=== PATIENT | male | born 1965 | race American Indian/Alaskan Native ===

== ENCOUNTER 2021-12-24 12:26 | Emergency (ER) | payer OTHER ==
[2021-12-24] MEDS ORDERED: NITROGLYCERIN 0.4 MG TAB SUBL SL PRN (13:04)
[2021-12-24] MEDS ORDERED: METOCLOPRAMIDE 10 MG/2 ML INJ IV ONE ×2 (13:04→21:06)
[2021-12-24] MEDS ORDERED: MECLIZINE 25 MG TAB PO ONE (13:05)
--- NOTE | 2021-12-24 13:09 | Emergency Department Report ---
ED General Adult HPI - General Chief complaint: Dizziness Stated complaint: HOT FLASH/DIZZY/SHAKY PUI?: No Source: patient, RN notes reviewed Mode of arrival: Wheelchair Limitations: Physical Limitation - History of Present Illness Initial comments: This patient is a 56-year-old gentleman. He has a history of tobacco abuse, and hypertension, and noncompliance with medications. Patient presents to the ER today with complaint of weakness, dizziness, feeling unsteady on his feet, left- sided chest pressure, with nausea/vomiting. He believes his last known well time is 10:00 AM. Denies trauma, surgery, immobilization, DVT/PE risk factors, hematemesis and bright red blood per rectum. He otherwise denies physical pain. He is found to be ataxic in the emergency room, with an appropriate Accu-Chek. A code stroke is activated overhead. -: Sudden, hour(s) Location: chest Consistency: constant Improves with: rest Worsens with: movement - Related Data Allergies Allergy/AdvReac Type Severity Reaction Status Date / Time No Known Allergies Allergy Verified 12/24/21 12:50 ED Review of Systems ROS: Stated complaint: HOT FLASH/DIZZY/SHAKY Other details as noted in HPI Constitutional: denies: fever ENT: denies: epistaxis Respiratory: denies: cough Cardiovascular: chest pain Gastrointestinal: denies: abdominal pain, hematemesis, melena, hematochezia Neurological: abnormal gait Hematological/Lymphatic: denies: easy bleeding ED Physical Exam - General Limitations: Physical Limitation General appearance: alert, anxious - Head Head exam: Present: atraumatic, normocephalic - Eye Eye exam: Present: normal appearance, EOMI, nystagmus (Bilateral nonfatigable horizontal nystagmus is noted.) - ENT ENT exam: Present: normal exam, normal orophraynx, mucous membranes moist, normal external ear exam - Neck Neck exam: Present: normal inspection, full ROM. Absent: tenderness, meningismus - Respiratory Respiratory exam: Present: normal lung sounds bilaterally. Absent: respiratory distress, wheezes, rales, rhonchi, stridor - Cardiovascular Cardiovascular Exam: Present: regular rate, normal rhythm. Absent: systolic murmur, diastolic murmur, rubs, gallop - GI/Abdominal GI/Abdominal exam: Present: soft. Absent: distended, tenderness, guarding, rebound, rigid, pulsatile mass - Rectal Rectal exam: Present: deferred - Extremities Exam Extremities exam: Present: normal inspection, full ROM, other (2+ pulses noted in the bilateral upper and lower extremities. There is no palpable cord. negative Homans sign. Muscular compartments are soft. The pelvis is stable.). Absent: pedal edema, calf tenderness - Back Exam Back exam: Present: normal inspection. Absent: tenderness, CVA tenderness (L), paraspinal tenderness, vertebral tenderness - Neurological Exam Neurological exam: Present: alert (There is no past-pointing. There is normal [id number].), oriented X3, abnormal gait (Patient walks with a broad-based unsteady gait), other (No facial droop. Tongue midline. Extraocular movements intact bilaterally. Facial sensation intact to light touch in V1, V2, V3 distribution bilaterally. 5 and a 5 strength in 4 extremities. Sensation intact to light touch in 4 extremities.). Absent: motor sensory deficit - Psychiatric Psychiatric exam: Present: anxious - Skin Skin exam: Present: warm, dry, intact, normal color. Absent: rash ED Course Vital Signs 12/24/21 12/24/21 12/24/21 12:50 13:43 13:52 Temperature 97.4 F L Pulse Rate 76 82 80 Respiratory 16 18 Rate Blood Pressure 236/125 Blood Pressure 232/132 [Left] Blood Pressure 236/135 [Right] O2 Sat by Pulse 95 95 Oximetry 12/24/21 12/24/21 12/24/21 13:57 14:00 14:02 Temperature Pulse Rate 78 81 79 Respiratory 23 24 22 Rate Blood Pressure Blood Pressure [Left] Blood Pressure 218/131 236/125 230/128 [Right] O2 Sat by Pulse 96 98 97 Oximetry 12/24/21 12/24/21 12/24/21 14:06 14:08 14:10 Temperature Pulse Rate 76 76 75 Respiratory 17 17 15 Rate Blood Pressure Blood Pressure [Left] Blood Pressure 230/129 225/123 221/119 [Right] O2 Sat by Pulse 95 96 96 Oximetry 12/24/21 12/24/21 12/24/21 14:13 14:18 14:22 Temperature Pulse Rate 80 82 83 Respiratory 17 16 16 Rate Blood Pressure Blood Pressure [Left] Blood Pressure 203/123 174/109 169/106 [Right] O2 Sat by Pulse 96 95 98 Oximetry 12/24/21 12/24/21 12/24/21 14:29 14:45 15:00 Temperature Pulse Rate 80 81 79 Respiratory 17 19 Rate Blood Pressure 168/103 Blood Pressure [Left] Blood Pressure 156/97 154/98 [Right] O2 Sat by Pulse 97 94 Oximetry 12/24/21 12/24/21 12/24/21 15:30 16:00 17:00 Temperature Pulse Rate 75 74 84 Respiratory 18 14 17 Rate Blood Pressure Blood Pressure [Left] Blood Pressure 149/93 151/91 146/82 [Right] O2 Sat by Pulse 98 98 94 Oximetry 12/24/21 12/24/21 12/24/21 17:35 17:45 18:00 Temperature Pulse Rate 74 83 Respiratory 20 22 Rate Blood Pressure 174/112 Blood Pressure [Left] Blood Pressure [Right] O2 Sat by Pulse 98 94 92 Oximetry 12/24/21 12/24/21 18:16 18:30 Temperature Pulse Rate 86 81 Respiratory 21 16 Rate Blood Pressure 172/106 147/84 Blood Pressure [Left] Blood Pressure [Right] O2 Sat by Pulse 93 93 Oximetry - Reevaluation(s) Reevaluation #1: 12/24/21 14:45 Differential diagnosis, including but not limited to: Acute coronary syndrome, acute ischemic stroke, central vertigo, peripheral vertigo, hypertensive emergency, PRESS syndrome Assessment and plan: 56-year-old gentleman, presenting today with a complaint of nausea, vomiting, unsteady gaits, subjective ataxia, found to be markedly ataxic on his examination, which symptoms concerning for acute ischemic stroke. The patient endorses no contraindications to TPA. Patient presented markedly hypertensive, and required multiple doses of labetalol, 10 mg x 2, administered by myself, and subsequent initiation of a Cardene drip. The risks, benefits, and alternatives of TPA were discussed with the patient, including the risk of potential fatal bleed, or hemorrhagic conversion. Patient has provided verbal informed consent for TPA administration. Ultimately, blood pressure is improved to 169/106 mmHg, and patient is seen in consultation with stroke neurology, Dr. Santoyo; we both agree that this patient is a TPA candidate, and TPA is recommended. The patient is agreeable to TPA. Multiple communicative attempts were relayed to interpreting radiology, reque sting expedited interpretation of CT scan of the brain. Received verbal report from radiologist, Dr. Chelsi Jerome that noncontrast CT scan of the brain is negative for acute findings, specifically hemorrhage. TPA bolus is administered with me at the bedside. Received subsequent phone call from radiologist, Dr. Mena, with the following interpretation:IMPRESSION: 1. No acute intracranial hemorrhage. 2. 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 No definite acute territorial infarct. 3. Probable left retinal detachment with subacute to acute hematoma. The patient's TPA drip is canceled. Have rediscussed this with Dr. Santoyo; aminocaproic acid, TXA not recommended. She also recommends repeat noncontrast CT scan of the brain, 60 minutes, which has currently been ordered. Have then reached out to [facility] transfer [place] and discussed the case with Dr Vergara, neurology critical care, who advises that it would be acceptable to accept this patient as a transfer, but they do not have any beds supportive care is recommended, continued cardene drip, no reveral agents at this time they will keep the patient on their list should a bed open up called up [facility] transfer center, and discussed the history physical and clinical impression with their neuro critical care physician Dr Lg Conley. [facility] advises that they dont have available critical care beds [facility] up [facility] to discuss and I discussed the patient's history, physical, imaging studies and clinical impression with neurology critical care, Dr. Vasquez He has accepted the patient as a transfer to their critical care unit. Went back and had extensive discussion with the patient's son, and the patient, with patient's permission to discuss his medical information. Specifically described rationale for transfer, and current impression of current events. T michael have provided consent for transfer. Repeat noncontrast CT scan of the brain pending. [place] [facility] transfer center to be updated. 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 Patient is awake, alert, protecting airway, moving 4 extremities, and in no acute distress, and suitable for transfer at this point in time 12/24/21 18:55 Patient is reassessed multiple times. He is moving 4 extremities moving spontaneously. Blood pressure is acceptable at this time. Repeat noncontrast CT scan of the brain negative for acute different findings. Transportation to arrive at 8:00 PM. Patient and family members updated. ED Medical Decision Making - Lab Data Result diagrams: 12/24/21 13:56 12/24/21 13:56 Vital Signs 12/24/21 12/24/21 12:50 13:52 Temperature 97.4 F L Pulse Rate 76 80 Respiratory 16 Rate Blood Pressure 236/125 Blood Pressure 232/132 [Left] O2 Sat by Pulse 95 Oximetry Lab Results 12/24/21 12/24/21 12/24/21 Range/Units 13:56 13:56 13:56 WBC 12.4 H (4.5-11.0) K/mm3 RBC 4.94 (3.65-5.03) M/mm3 Hgb 14.1 (11.8-15.2) gm/dl Hct 44.1 (35.5-45.6) % MCV 89 (84-94) fl MCH 29 (28-32) pg MCHC 32 (32-34) % RDW 15.0 (13.2-15.2) % Plt Count 194 (140-440) K/mm3 Seg Neutrophils % Crepe S[employer]ourer PT 13.8 (12.2-14.9) Sec. INR 0.96 (0.87-1.13) APTT 26.7 (24.2-36.6) Sec. Thrombin Time 16.7 (15.1-19.6) Sec. Sodium 138 (137-145) mmol/L Potassium 4.3 (3.6-5.0) mmol/L Chloride 102.2 (98-107) mmol/L Carbon Dioxide 25 (22-30) mmol/L Anion Gap 15 mmol/L BUN 27 H (9-20) mg/dL Creatinine 1.7 H (0.8-1.3) mg/dL Estimated GFR 42 ml/min BUN/Creatinine Ratio 16 % Glucose 148 H (75-100) mg/dL Calcium 10.2 (8.4-10.2) mg/dL Total Bilirubin 0.50 (0.1-1.2) mg/dL AST 16 (5-40) units/L ALT 8 (7-56) units/L Alkaline Phosphatase 64 (35-129) units/L Total Creatine Kinase 172 H (55-170) units/L CK-MB (CK-2) 5.2 H (0.0-4.0) ng/mL CK-MB (CK-2) Rel Index 3.0 (0-4) Troponin T < 0.010 (0.00-0.029) ng/mL Total Protein 7.6 (6.3-8.2) g/dL Albumin 4.5 (3.9-5) g/dL Albumin/Globulin Ratio 1.5 % - EKG Data -: EKG Interpreted by Or EKG shows normal: sinus rhythm Rate: normal - EKG Data When compared to previous EKG there are: previous EKG unavailable 12/24/21 14:38 The EKG is interpreted at 12: 56 Sinus rhythm, rate 75 bpm. Left axis deviation. Left anterior fascicular block. Left ventricular hypertrophy. Nonspecific ST abnormality. No reciprocal changes are noted. The EKG is not a STEMI. EKG also transmitted to our pizza maker, Dr Gruber, who agrees and advises that this EKG does not meet criteria for STEMI - Radiology Data Radiology results: pending, report reviewed, image reviewed CT HEAD WITHOUT CONTRAST INDICATION / CLINICAL INFORMATION: Stroke symptoms. Posterior symptoms. TECHNIQUE: All CT scans at this location are performed using CT dose reduction for ALARA by means of automated exposure control. COMPARISON: None available. FINDINGS: HEMORRHAGE: None. EXTRA-AXIAL SPACES: Normal in size and morphology for the patient's age. VENTRICULAR SYSTEM: Normal in size and morphology for the patient's age. 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 No acute territorial infarct. MIDLINE SHIFT / HERNIATION: None. CEREBELLUM / BRAINSTEM: No significant abnormality. ORBITS: Probable left retinal detachment with subacute to acute hematoma measuring 2.5 x 1.0 cm as seen on axial series 2 image 22. SOFT TISSUES: No significant abnormality. SKULL: No significant abnormality. PARANASAL SINUSES / MASTOID AIR CELLS: Normal as visualized. ADDITIONAL FINDINGS: None. IMPRESSION: 1. No acute intracranial hemorrhage. 2. 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 No definite acute territorial infarct. 3. Probable left retinal detachment with subacute to acute hematoma. CODE STROKE Time of Communication (COMPONENT LAB TECH/CDT): 1:25 PM Licensed Practitioner Receiving Report: Dr. Peralta in the ED Signer Name: Chacha Mena MD Signed: 12/24/2021 1:29 PM Workstation Name: [id number] CTA NECK WITH CONTRAST 12/24/2021 INDICATION / CLINICAL INFORMATION: stroke sx. COMPARISON: None. TECHNIQUE: Routine CTA of the neck is performed. 3-D/MIP reformats were postprocessed. Percentage stenosis is determined by direct quantitative measurements of diseased internal carotid artery diameter compared with normal distal internal carotid artery reference segments or by criteria similar to NASCET where applicable. All CT scans at this location are performed using CT dose reduction for ALARA by means of automated exposure control. CONTRAST: 100 ml of Omnipaque 350 FINDINGS: Carotid bifurcations: There is no evidence of carotid bifurcation stenosis. Carotid arteries: No significant abnormality. Cervical vertebral arteries: No significant abnormality. Aortic arch: No significant abnormality. None. IMPRESSION: No significant abnormality. Signer Name: Nelson Pimentel MD Signed: 12/24/2021 1:35 PM Workstation Name: [id number] CTA HEAD WITH CONTRAST 12/24/2021 HISTORY: stroke sx. COMPARISON: None. TECHNIQUE: All CT scans at this location are performed using CT dose reduction for ALARA by means of automated exposure control.. 3-D/MIP reformats po stprocessed. Percentage stenosis is determined by direct quantitative measurements of diseased internal carotid artery diameter compared with normal distal internal carotid artery reference segments or by criteria similar to NASCET where applicable. CONTRAST: 100 ml of Omnipaque 350 FINDINGS: CTA HEAD: Intracranial vertebral arteries: No significant abnormality. Basilar artery: No significant abnormality. Posterior cerebral arteries: No significant abnormality. Intracranial internal carotid arteries: No significant abnormality. Anterior cerebral arteries: No significant abnormality. Middle cerebral arteries: No significant abnormality. Dural venous sinuses:Not optimally opacified. No significant abnormality. Additional findings: None. IMPRESSION: 1. No significant abnormality. Signer Name: Nelson Pimentel MD Signed: 12/24/2021 1:39 PM Workstation Name: [id number] CT BRAIN: 12/25/2023 1618 hours INDICATION / CLINICAL INFORMATION: s/p tpa bolus, left retinal detachment bleed. COMPARISON: CT brain 12/24/2021 1319 hours FINDINGS: BRAIN/INTRACRANIAL STRUCTURES: Unenhanced CT images of the brain were obtained and compared to previous exam from several hours earlier. There is been no change. Again seen is diffuse cerebral atrophy with chronic right frontal subcortical hyp oattenuation. There is no evidence of superimposed ischemic injury, hemorrhage, or mass. There are no abnormal extra-axial fluid collections. Again seen is evidence of probable left retinal detachment, unchanged in appearance and configuration when compared to the prior exam. EXTRACRANIAL STRUCTURES: Unremarkable. IMPRESSION: No evidence of acute superimposed abnormality when compared to the previous exam. Stable appearance of left globe. All CT scans at this location are performed using dose reduction to ALARA by means of automated exposure control. Signer Name: Nelson Pimentel MD Signed: 12/24/2021 3:40 PM Workstation Name: [id number] Critical Care Time: Yes Critical care time in (mins) excluding proc time.: 180 Critical care attestation.: If time is entered above; I have spent that time in minutes in the direct care of this critically ill patient, excluding procedure time. ED Disposition Clinical Impression: Hypertensive emergency, Unsteady gait, Abnormal CT scan of head, Retinal detachment Disposition: 02 SHORT TERM [facility]OSPITAL Is pt being admited?: No Does the pt Need Aspirin: No Condition: Critical Instructions: Hypertension (ED) Referrals: ROMA MARTINI MD [Primary Care Provider] - 3-5 Days - Assessment Assessment Interval: Baseline - Level of Consciousness 1a. Level of Consciousness: alert/keenly responsive - LOC Questions 1b. LOC Questions: answers both correctly - LOC Command 1c. LOC Commands: performs tasks correctly - Best Gaze 2. Best Gaze: normal - Visual 3. Visual: no visual loss - Facial Palsy 4. Facial Palsy: normal symmetrical movement - Motor Arm 5a. Motor Arm Left: no drift 5b. Motor Arm Right: no drift - Motor Leg 6a. Motor Leg Left: no drift 6b. Motor Leg Right: no drift - Limb Ataxia 7. Limb Ataxia: absent - Sensory 8. Sensory: normal - Best Language 9. Best Language: no aphasia - Dysarthria 10. Dysarthria: normal - Extinction and Inattention 11. Extinction/Inattention: no abnormality - Scoring Total Score: 0 Stroke Severity: No Stroke Symptoms
[2021-12-24] MEDS ORDERED: ALTEPLASE 100 MG INJ KIT IV ONE ×2 (13:40)
[2021-12-24] MEDS ORDERED: SODIUM CHLORIDE 0.9% 50 ML IVPB IV ONE (13:40)
[2021-12-24] MEDS ORDERED: niCARdipine DRIP 40 MG/200 ML BAG ONE (13:54)
[2021-12-24] MEDS ORDERED: niCARdipine 50 MG in SODIUM CHLORIDE 0.9% 250ML 230 ML IV SCH (14:00)
[2021-12-24 14:04] LABS: Hematocrit 44.1 % (35.5-45.6); Hemoglobin 14.1 gm/dl (11.8-15.2); Mean Corpuscular HGB Conc 32 % (32-34); Mean Corpuscular Volume 89 fl (84-94); Platelet Count 194 K/mm3 (140-440); Red Blood Count 4.94 M/mm3 (3.65-5.03)
[2021-12-24 14:21] LABS: INR 0.96 (0.87-1.13)
[2021-12-24 14:22] LABS: Partial Thromboplastin Time 26.7 Sec. (24.2-36.6); Thrombin Time 16.7 Sec. (15.1-19.6)
[2021-12-24 14:32] LABS: Alanine Aminotransferase 8 units/L (7-56); Albumin 4.5 g/dL (3.9-5); BUN/Creatinine Ratio 16; Blood Urea Nitrogen 27 mg/dL (9-20); Calcium 10.2 mg/dL (8.4-10.2); Hemolysis Index 5
[2021-12-24 14:33] LABS: Creatine Kinase MB 5.2 ng/mL (0.0-4.0)
--- NOTE | 2021-12-24 14:34 | Cat Scan Report ---
CT HEAD WITHOUT CONTRAST INDICATION / CLINICAL INFORMATION: Stroke symptoms. Posterior symptoms. TECHNIQUE: All CT scans at this location are performed using CT dose reduction for ALARA by means of automated exposure control. COMPARISON: None available. FINDINGS: HEMORRHAGE: None. EXTRA-AXIAL SPACES: Normal in size and morphology for the patient's age. VENTRICULAR SYSTEM: Normal in size and morphology for the patient's age. 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 No acute territorial infarct. MIDLINE SHIFT / HERNIATION: None. CEREBELLUM / BRAINSTEM: No significant abnormality. ORBITS: Probable left retinal detachment with subacute to acute hematoma measuring 2.5 x 1.0 cm as se en on axial series 2 image 22. SOFT TISSUES: No significant abnormality. SKULL: No significant abnormality. PARANASAL SINUSES / MASTOID AIR CELLS: Normal as visualized. ADDITIONAL FINDINGS: None. IMPRESSION: 1. No acute intracranial hemorrhage. 2. 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 No definite acute territorial infarct. 3. Probable left retinal detachment with subacute to acute hematoma. CODE STROKE Time of Communication (BRIDGE TENDER/CDT): 1:25 PM Licensed Practitioner Receiving Report: Dr. Peralta in the ED Signer Name: Chacha Mena MD Signed: 12/24/2021 2:29 PM Workstation Name: [id number]
--- NOTE | 2021-12-24 14:40 | Cat Scan Report ---
CTA NECK WITH CONTRAST 12/24/2021 INDICATION / CLINICAL INFORMATION: stroke sx. COMPARISON: None. TECHNIQUE: Routine CTA of the neck is performed. 3-D/MIP reformats were postprocessed. Percentage st enosis is determined by direct quantitative measurements of diseased internal carotid artery diameter compared with normal distal internal carotid artery reference segments or by criteria similar to ALFIE CET where applicable. All CT scans at this location are performed using CT dose reduction for ALARA b y means of automated exposure control. CONTRAST: 100 ml of Omnipaque 350 FINDINGS: Carotid bifurcations: There is no evidence of carotid bifurcation stenosis. Carotid arteries: No significant abnormality. Cervical vertebral arteries: No significant abnormality. Aortic arch: No significant abnormality. None. IMPRESSION: No significant abnormality. Signer Name: Nelson Pimentel MD Signed: 12/24/2021 2:35 PM Workstation Name: [id number]
--- NOTE | 2021-12-24 14:43 | Cat Scan Report ---
CTA HEAD WITH CONTRAST 12/24/2021 HISTORY: stroke sx. COMPARISON: None. TECHNIQUE: All CT scans at this location are performed using CT dose reduction for ALARA by means of automated exposure control.. 3-D/MIP reformats postprocessed. Percentage stenosis is determined by d irect quantitative measurements of diseased internal carotid artery diameter compared with normal dis eliseo internal carotid artery reference segments or by criteria similar to NASCET where applicable. CONTRAST: 100 ml of Omnipaque 350 FINDINGS: CTA HEAD: Intracranial vertebral arteries: No significant abnormality. Basilar artery: No significant abnormality. Posterior cerebral arteries: No significant abnormality. Intracranial internal carotid arteries: No significant abnormality. Anterior cerebral arteries: No significant abnormality. Middle cerebral arteries: No significant abnormality. Dural venous sinuses:Not optimally opacified. No significant abnormality. Additional findings: None. IMPRESSION: 1. No significant abnormality. Signer Name: Nelson Pimentel MD Signed: 12/24/2021 2:39 PM Workstation Name: [id number]
[2021-12-24 15:20] LABS: Basophils % (Manual) 0 % (0.0-1.8); Eosinophils % (Manual) 0 % (0.0-4.3); Total Cells Counted 100
[2021-12-24 15:21] LABS: Platelet Estimate Consistent w Auto; RBC Morphology Normal
--- NOTE | 2021-12-24 15:27 | XRay Report ---
CHEST 1 VIEW 12/24/2021 3:03 PM INDICATION / CLINICAL INFORMATION: chest pain. COMPARISON: None available. FINDINGS: SUPPORT DEVICES: None. HEART / MEDIASTINUM: Heart is upper normal size for AP portable technique. LUNGS / PLEURA: No significant pulmonary or pleural abnormality. No pneumothorax. ADDITIONAL FINDINGS: No significant additional findings. IMPRESSION: 1. No acute findings. Signer Name: Chacha Mena MD Signed: 12/24/2021 3:22 PM Workstation Name: [id number]
--- NOTE | 2021-12-24 16:45 | Cat Scan Report ---
CT BRAIN: 12/25/2023 1618 hours INDICATION / CLINICAL INFORMATION: s/p tpa bolus, left retinal detachment bleed. COMPARISON: CT brain 12/24/2021 1319 hours FINDINGS: BRAIN/INTRACRANIAL STRUCTURES: Unenhanced CT images of the brain were obtained and compared to previo us exam from several hours earlier. There is been no change. Again seen is diffuse cerebral atrophy with chronic right frontal subcortical hypoattenuation. There is no evidence of superimposed ischemic injury, hemorrhage, or mass. There are no abnormal extr a-axial fluid collections. Again seen is evidence of probable left retinal detachment, unchanged in appearance and configuration when compared to the prior exam. EXTRACRANIAL STRUCTURES: Unremarkable. IMPRESSION: No evidence of acute superimposed abnormality when compared to the previous exam. Stable appearance of left globe. All CT scans at this location are performed using dose reduction to ALARA by means of automated expos ure control. Signer Name: Nelson Pimentel MD Signed: 12/24/2021 4:40 PM Workstation Name: [id number]
[2021-12-24 21:23] VITALS: BP 163/100
--- NOTE | 2021-12-25 00:06 | Emergency Department Report ---
Blank Doc - Documentation Documentation: [facility] Consult Note # Demographics Consult Type: Acute Stroke Level 1 (0-4.5 hrs) Patient Location: Emergency Room First Name: Nina Last Name: Carroll Date of : 1965 Age: 56 Gender: Male Facility: [facility] Time of Initial Page ( Time): 12/24/2021, 13:05 Time of Return Call ( Time): 12/24/2021, 13:05 # HPI History: 56 year old male with hx of HTN, noncompliant with meds, presents to ED with acute onset of dizziness and ataxia. Patient states he was working on something in the house when he suddenly felt sick, he came out started to feel nausea, dizzy and difficulty in walking. # Scores Time of exam and NIHSS (): 12/24/2021, 12:37 Level of Consciousness 1a: [0] = Alert; keenly responsive LOC Questions 1b: [0] = Answers both questions correctly LOC Commands 1c: [0] = Performs both tasks correctly Best Gaze 2: [0] = Normal Visual 3: [0] = No visual loss Facial Palsy 4: [0] = Normal symmetrical movements Motor Arm Left 5a: [1] = Drift Motor Arm Right 5b: [0] = No drift Motor Leg Left 6a: [2] = Some effort against gravity Motor Leg Right 6b: [0] = No drift Limb Ataxia 7: [1] = Present in one limb Sensory 8: [0] = Normal Best Language 9: [0] = No aphasia Dysarthria 10: [0] = Normal Extinction and Inattention 11: [0] = No abnormality NIHSS Total: 4 # Exam Additional Neurologic Exam: severe ataxic and unsteady gait leaning to the let on walking # Data Head CT: hemorrhage left eye hematoma thats acute-subacute CTA Head: no large vessel occlusion per radiologist read CTA Neck: patent vessels per radiologist read # Assessment Impression: 56 year old male with hx of htn, non-compliant on meds presents with symptoms of posterior circulation with noted dizziness ?, nausea, ataxia. Patient also complaining of chest pain. Patient met tpa criteria. I personally was unable to read CTH as it read "no studies available". Initial CTH read as negative to Dr. Peralta over the phone by radiologist. Patient given tpa bolus after which Dr. Alexander reported acute to subacute hematoma in left eye with retinal detachment on CTH. tpa infusion was had not been started. Patient with elevated BP >220 and very resilient to treatment. Dr. Peralta and I discussed these findings. We will no continue with tpa at this time. Will repeat CTH in 1 hour to confirm no further change in hematoma of the left eye. Patient confirms this may be chronic however findings on CTH were noted to be acute. CTA with no LVO. Recommend further stroke work up. Optho consult for left eye findings. Etiology stroke vs. hypertensive emergency (PRES) # Plan Thrombolytic/Intervention: IV Thrombolysis Thrombolytic Dosing: IV alteplase 0.9 mg/kg, max dose 90 mg; 10% of dose given over 1 minute IVP, remaining 90% given as infusion over 1 hour Intraarterial Exclusion: no large vessel occlusion (LVO) Target Blood Pressure: SBP < 180 DBP < 105 Labs: CBC comprehensive metabolic panel hemoglobin A1c liver function tests lipid panel troponin TSH ua Imaging: (urgency: STAT): CT Angiogram Head and CT Angiogram Neck Imaging: (urgency: routine): MRI Brain without contrast Diagnostic Test: echo with bubble study Therapy/Evaluation: NPO until swallow evaluation PT/OT evaluation speech/swallow consultation Thrombolytic Administration Recommendations: I reviewed the risks/benefits/alternatives of IV thrombolytic therapy with the patient. They understand there is potential of life threatening hemorrhage from IV thrombolysis. I stated that I believe benefits outweighs risk. They wish to proceed with IV thrombolytic therapy. I have collected independent history specific to time last normal or last known well. We have collaborated with the ED provider and at this time, we have the most current timeline with the information that is available. BP goal< 180/105 for 24hrs post Thrombolytic administration Use Labetolol 10-20mg IV prn or Nicardipine gtt to maintain BP parameters No antiplatelets or anticoagulants for next 24 hrs unless indicated for emergent IA procedure or other life threatening situation ICU admission Call back if there is any decline in neurological condition symptoms deemed to be disabling, despite low NIHSS Other: consult on-site neurology service for full work-up and evaluation recommendations If patient has any neurological deterioration please call me back immediately telemetry monitoring I have discussed my recommendations with the referring provider Disposition: transfer
--- NOTE | 2021-12-25 14:18 | Electrocardiograph Report ---
[facility] Test Date: 2021-12-24 Test Time: 12:56:23 Pat Name: CYRUS ANDERSON Department: Room: Gender: M Embedded Systems Engineer: CHELY : 1965 Requested By: SHANA FERRER Order Number: [id number] Reading MD: Vick [facility] Measurements Intervals [place] Rate: 75 P: 38 MS: 162 QRS: -11 QRSD: 104 T: 55 QT: 414 QTc: 464 Interpretive Statements Sinus rhythm Left atrial enlargement Left ventricular hypertrophy No previous ECG available for comparison Electronically Signed On 12-25-2021 14:18:15 EDT by Vick Heart
--- NOTE | 2021-12-25 14:20 | Electrocardiograph Report ---
[facility] Test Date: 2021-12-24 Test Time: 17:45:02 Pat Name: CYRUS ANDERSON Department: Room: Gender: M Weaving Loom Operator: STAN : 1965 Requested By: SHANA FERRER Order Number: [id number] Reading MD: Vick [facility] Measurements Intervals [place] Rate: 74 P: 42 [place]: 150 QRS: -19 QRSD: 104 T: 68 QT: 401 QTc: 445 Interpretive Statements Sinus rhythm Probable left atrial enlargement Left ventricular hypertrophy T wave abnormality consider lateral ischemia Compared to ECG 12/24/2021 12:56:23 No significant change Electronically Signed On 12-25-2021 14:19:44 EDT by Vick Heart
== END 2021-12-24 21:26 | disposition short-term general hospital (02) ==
LOC: ED 12:26
DX: I16.1 Hypertensive emergency (principal); H33.22 Serous retinal detachment, left eye; R26.81 Unsteadiness on feet; R93.0 Abnormal findings on diagnostic imaging of skull and head, not elsewhere classified; Z79.899 Other long term (current) drug therapy
CPT/HCPCS: 36415; 37212; 70450; 70496; 70498; 71045; 80053; 82550; 82553; 84484; 85007; 85025; 85610; 85670; 85730; 93005; 96374; 96375; 99291; 99292; J2765; J2997; J3490; J7050; Q9967; 99285